=== PATIENT | male | born 2000 | race Two or more races ===

== ENCOUNTER 2021-12-11 14:36 | Emergency (ER) | payer OTHER ==
[~2021-12-11] VITALS: Ht 172.7 cm; Wt 48.5 kg
[2021-12-11 15:00] VITALS: BP 131/77
--- NOTE | 2021-12-11 16:06 | NUR ---
DIRECTOR OF STUDENT FINANCIAL AID AT BEDSIDE FOR XRAY.
--- NOTE | 2021-12-11 16:44 | NUR ---
Patient discharged to home in stable condition. Written and verbal after care instructions given. Patient verbalizes understanding of instruction.
== END 2021-12-11 16:45 | disposition home or self-care (01) ==
LOC: ER 14:53
DX: S20.212A Contusion of left front wall of thorax, initial encounter (principal); J45.909 Unspecified asthma, uncomplicated; Z60.2 Problems related to living alone; X58.XXXA Exposure to other specified factors, initial encounter; Y93.89 Activity, other specified; Y92.89 Other specified places as the place of occurrence of the external cause; Y99.8 Other external cause status
CPT/HCPCS: 71045-TC

== ENCOUNTER 2024-01-17 14:31 | Emergency (ER) | payer OTHER ==
[~2024-01-17] VITALS: Ht 172.7 cm; Wt 50.3 kg
[2024-01-17] MEDS ORDERED: NALO4SPR BNOSTRILS (17:01)
[2024-01-17 17:16] VITALS: BP 115/68; TEMP 98.4; O2SAT 99
== END 2024-01-17 17:17 | disposition home or self-care (01) ==
LOC: ER 14:35
DX: T50.991A Poisoning by other drugs, medicaments and biological substances, accidental (unintentional), initial encounter (principal); J45.909 Unspecified asthma, uncomplicated; Z60.2 Problems related to living alone; Y92.89 Other specified places as the place of occurrence of the external cause